=== PATIENT | male | born 1980 | race African-American/Black ===

== ENCOUNTER 2023-11-20 12:17 | Inpatient (IN) ==
[2023-11-20 12:51] LABS: ABS Eosinophils 0.1 10^3/uL (0.0-0.5); ABS Monocytes 0.5 10^3/uL (0.0-1.1); ABS Neutrophils 6.8 10^3/uL (1.5-7.6); ABS Nucleated RBC 0.01 10^3/ul; Eosinophil % 0.6 %; Hematocrit 42.1 % (38-53); Hemoglobin 14.5 g/dL (13.2-16.3); Mean Corpuscular Hemoglobin 31.4 pg (27-33); Mean Corpuscular Hgb Conc 34.3 g/dL (31-36); Mean Corpuscular Volume 91.5 fL (80-97); Mean Platelet Volume 7.5 fL (7.5-11.2); Nucleated Red Blood Cells % 0.1 %/100WBC (0.0-0.8); Platelet Count 198 10^3/uL (150-450); Red Blood Count 4.61 10^6/uL (4.06-5.63); Red Cell Distribution Width 12.8 % (12-17); White Blood Count 8.5 10^3/uL (3.6-10.2)
[2023-11-20] MEDS: Heparin - STEMI 5,000 UNITS/ML 1 ml VIAL IV ONE (12:54)
[2023-11-20] MEDS ORDERED: fentaNYL 100 mcg/2 ml 50 MCG/ML VIAL ONE (13:01)
[2023-11-20] MEDS ORDERED: Midazolam 5 mg/5 ml VIAL 1 mg/ml 5 ml VIAL (5 mg) ONE (13:01)
[2023-11-20] MEDS ORDERED: nitroGLYCERIN DRIP 0 MCG/0 ML BTL ONE (13:02)
[2023-11-20] MEDS ORDERED: Iohexol 350 (CONTRAST) 200 ML MDV IV ONE ×2 (13:02→14:34)
[2023-11-20] MEDS ORDERED: VERAPAMIL 2.5 MG/ML 2 ML VIAL ** 5 mg/2 ml ONE (13:02)
[2023-11-20] MEDS ORDERED: Heparin 1,000 UNIT/ML 10 ml (10,000 UNITS) CATHLAB/DIALYSIS ONE (13:02)
[2023-11-20] MEDS ORDERED: Heparin 2 UNITS/ML 1000 mls 3,000 ML IV ONE (13:02)
[2023-11-20] MEDS ORDERED: Lidocaine 1% MPF 5 ML VIAL ONE (13:03)
[2023-11-20] MEDS ORDERED: nitroGLYCERIN DRIP 25,000 MCG/250 ML BTL ONE (13:03)
[2023-11-20 13:07] LABS: INR 1.15 (0.83-1.13)
[2023-11-20] MEDS ORDERED: Bivalirudin 250 MG VIAL ONE ×2 (13:30→14:14)
[2023-11-20 13:49] LABS: Albumin 4.3 g/dL (3.2-5.2); Albumin/Globulin Ratio 1.4 (1-3); Calcium 9.5 mg/dL (8.6-10.3); Creatinine, Serum 1.11 mg/dL (0.67-1.17); Globulin 3.1 g/dL (2-4); Potassium 4.4 mmol/L (3.5-5.0); Total Bilirubin 0.6 mg/dL (0.2-1.0); Total Protein 7.4 g/dL (6.4-8.9)
[2023-11-20 13:52] LABS: Magnesium 1.6 mg/dL (1.9-2.7)
[2023-11-20] MEDS ORDERED: Eptifibatide IV (Load dose) 2 MG/ML 10 ml VIAL ONE (13:54)
[2023-11-20] MEDS ORDERED: Norepinephrine 4 MG/250mL D5W 4,000 MCG/250 ML BAG IV ONE (14:00)
[2023-11-20] MEDS ORDERED: Phenylephrine 40 mcg/mL 10mL (400mcg) SYRINGE ONE (14:01)
[2023-11-20] MEDS ORDERED: Ondansetron 4 mg VIAL 2 MG/ML 2 ml VIAL ONE (14:10)
[2023-11-20] MEDS ORDERED: Atropine 0.1 MG/ML 10 ml SYR (1 mg) ONE (14:13)
[2023-11-20] MEDS ORDERED: Magnesium Sulfate 2 gm BAG 2 GM/50 ML BAG ONE (14:23)
[2023-11-20] MEDS ORDERED: Furosemide 40 mg/4 ml IV VIAL ONE (15:17)
[2023-11-20] MEDS ORDERED: Heparin 5000 UNITS/ML 1 mL VIAL IV SCH (16:00)
[2023-11-20 16:52] LABS: ABS Basophils 0.1 10^3/uL (0.0-0.1); ABS Monocytes 0.8 10^3/uL (0.0-1.1); ABS Neutrophils 11.9 10^3/uL (1.5-7.6); ABS Nucleated RBC 0.01 10^3/ul; Eosinophil % 0.1 %; Hematocrit 41.9 % (38-53); Hemoglobin 14.2 g/dL (13.2-16.3); Lymphocyte % 7.4 %; Mean Corpuscular Hemoglobin 31.1 pg (27-33); Mean Corpuscular Hgb Conc 33.8 g/dL (31-36); Mean Corpuscular Volume 91.9 fL (80-97); Mean Platelet Volume 8.4 fL (7.5-11.2); Platelet Count 233 10^3/uL (150-450); Red Blood Count 4.57 10^6/uL (4.06-5.63); White Blood Count 13.8 10^3/uL (3.6-10.2)
[2023-11-20] MEDS: NS 0.9% 1000 ml BAG 1,000 ML IV SCH (17:14)
[2023-11-20] MEDS: Norepinephrine 4 MG/250mL D5W 4,000 MCG/250 ML BAG IV SCH (17:15)
[2023-11-20 17:40] LABS: High Sensitivity Troponin 1 Hr > 24000 pg/mL (<20)
[2023-11-20 18:26] LABS: Blood Urea Nitrogen 8 mg/dL (6-24); Creatinine, Serum 1.15 mg/dL (0.67-1.17); eGFR CKD-EPI 80.5 (>60)
[2023-11-20] MEDS: Heparin DRIP 25,000 UNITS BAG 25,000 UNITS/250 ML BAG IV SCH (20:40)
[2023-11-21 05:05] LABS: ABS Eosinophils 0.1 10^3/uL (0.0-0.5); ABS Lymphocytes 1.6 10^3/uL (1.0-4.8); ABS Monocytes 1.1 10^3/uL (0.0-1.1); ABS Neutrophils 6.8 10^3/uL (1.5-7.6); Eosinophil % 0.9 %; Hematocrit 38.2 % (38-53); Hemoglobin 13.1 g/dL (13.2-16.3); Lymphocyte % 17.1 %; Mean Corpuscular Hemoglobin 31.2 pg (27-33); Mean Corpuscular Hgb Conc 34.3 g/dL (31-36); Mean Corpuscular Volume 91.1 fL (80-97); Mean Platelet Volume 8.2 fL (7.5-11.2); Platelet Count 175 10^3/uL (150-450); Red Blood Count 4.19 10^6/uL (4.06-5.63); Red Cell Distribution Width 12.8 % (12-17); White Blood Count 9.7 10^3/uL (3.6-10.2)
[2023-11-21 06:49] LABS: Albumin 3.5 g/dL (3.2-5.2); Albumin/Globulin Ratio 1.3 (1-3); Calcium 8.3 mg/dL (8.6-10.3); Creatinine, Serum 1.06 mg/dL (0.67-1.17); Globulin 2.8 g/dL (2-4); HDL Cholesterol 34.9 mg/dL; Potassium 3.8 mmol/L (3.5-5.0); Total Bilirubin 0.7 mg/dL (0.2-1.0); Total Protein 6.3 g/dL (6.4-8.9); eGFR CKD-EPI 88.8 (>60)
[2023-11-21] MEDS ORDERED: Sulfur Hexaflouride MICROSPHR 25 MG VIAL ONE (09:29)
[2023-11-22 05:37] LABS: ABS Basophils 0.1 10^3/uL (0.0-0.1); ABS Eosinophils 0.2 10^3/uL (0.0-0.5); ABS Lymphocytes 1.6 10^3/uL (1.0-4.8); ABS Monocytes 0.9 10^3/uL (0.0-1.1); ABS Neutrophils 4.6 10^3/uL (1.5-7.6); ABS Nucleated RBC 0.02 10^3/ul; Eosinophil % 3.1 %; Hematocrit 39.8 % (38-53); Hemoglobin 13.7 g/dL (13.2-16.3); Lymphocyte % 21.8 %; Mean Corpuscular Hemoglobin 31.5 pg (27-33); Mean Corpuscular Hgb Conc 34.5 g/dL (31-36); Mean Corpuscular Volume 91.5 fL (80-97); Mean Platelet Volume 8.4 fL (7.5-11.2); Nucleated Red Blood Cells % 0.2 %/100WBC (0.0-0.8); Platelet Count 178 10^3/uL (150-450); Red Blood Count 4.34 10^6/uL (4.06-5.63); Red Cell Distribution Width 13.3 % (12-17); White Blood Count 7.4 10^3/uL (3.6-10.2)
[2023-11-22 06:05] LABS: Calcium 9.1 mg/dL (8.6-10.3); Creatinine, Serum 1.11 mg/dL (0.67-1.17); Magnesium 1.7 mg/dL (1.9-2.7)
[2023-11-22] MEDS: Enoxaparin 40 MG/0.4 ML SYR SUBCUT SCH (15:28)
[2023-11-23 05:25] LABS: ABS Eosinophils 0.2 10^3/uL (0.0-0.5); ABS Lymphocytes 1.6 10^3/uL (1.0-4.8); ABS Monocytes 0.7 10^3/uL (0.0-1.1); ABS Neutrophils 3.5 10^3/uL (1.5-7.6); ABS Nucleated RBC 0.01 10^3/ul; Eosinophil % 3.1 %; Hematocrit 41.2 % (38-53); Hemoglobin 14.2 g/dL (13.2-16.3); Lymphocyte % 26.5 %; Mean Corpuscular Hemoglobin 31.2 pg (27-33); Mean Corpuscular Hgb Conc 34.5 g/dL (31-36); Mean Corpuscular Volume 90.6 fL (80-97); Mean Platelet Volume 8.2 fL (7.5-11.2); Nucleated Red Blood Cells % 0.1 %/100WBC (0.0-0.8); Platelet Count 196 10^3/uL (150-450); Red Blood Count 4.55 10^6/uL (4.06-5.63); White Blood Count 5.9 10^3/uL (3.6-10.2)
[2023-11-23 06:12] LABS: Creatinine, Serum 1.29 mg/dL (0.67-1.17); Magnesium 1.9 mg/dL (1.9-2.7); Potassium 4.1 mmol/L (3.5-5.0); eGFR CKD-EPI 70.1 (>60)
[2023-11-23] MEDS: Magnesium Sulfate 2 gm BAG 2 GM/50 ML BAG IVPB ONE (09:07)
[2023-11-24 05:04] LABS: Hematocrit 41.5 % (38-53); Hemoglobin 14.4 g/dL (13.2-16.3); Mean Corpuscular Hemoglobin 31.4 pg (27-33); Mean Corpuscular Hgb Conc 34.6 g/dL (31-36); Mean Corpuscular Volume 90.5 fL (80-97); Platelet Count 217 10^3/uL (150-450); Red Blood Count 4.58 10^6/uL (4.06-5.63); Red Cell Distribution Width 12.9 % (12-17); White Blood Count 6.6 10^3/uL (3.6-10.2)
[2023-11-24 05:56] LABS: Calcium 9.2 mg/dL (8.6-10.3); Creatinine, Serum 1.35 mg/dL (0.67-1.17); Potassium 4.5 mmol/L (3.5-5.0); eGFR CKD-EPI 66.4 (>60)
[2023-11-24] MEDS ORDERED: Sulfur Hexaflouride MICROSPHR 25 MG VIAL ONE (10:21)
[2023-11-24] MEDS ORDERED: Heparin DRIP 25,000 UNITS BAG 25,000 UNITS/250 ML BAG IV SCH (10:45)
[2023-11-24] MEDS ORDERED: Heparin 5000 UNITS/ML 1 mL VIAL IV SCH (11:00)
[2023-11-24] MEDS ORDERED: Warfarin per PHARMACY **NOTE FOLLOW UP SCH (11:00)
[2023-11-24] MEDS: Enoxaparin 80 MG/0.8 ML SYR SUBCUT SCH (11:50)
[2023-11-24 14:00] LABS: INR 1.2 (0.83-1.13)
[2023-11-24 23:36] LABS: INR 1.27 (0.83-1.13)
[2023-11-25 06:33] LABS: Hematocrit 42.8 % (38-53); Hemoglobin 14.9 g/dL (13.2-16.3); Mean Corpuscular Hemoglobin 31.5 pg (27-33); Mean Corpuscular Hgb Conc 34.8 g/dL (31-36); Mean Corpuscular Volume 90.5 fL (80-97); Mean Platelet Volume 8.1 fL (7.5-11.2); Platelet Count 236 10^3/uL (150-450); Red Blood Count 4.73 10^6/uL (4.06-5.63); White Blood Count 6.3 10^3/uL (3.6-10.2)
[2023-11-25 06:44] LABS: INR 1.21 (0.83-1.13)
[2023-11-25 06:52] LABS: Calcium 9.4 mg/dL (8.6-10.3); Creatinine, Serum 1.44 mg/dL (0.67-1.17); Magnesium 2.1 mg/dL (1.9-2.7); Potassium 4.4 mmol/L (3.5-5.0); eGFR CKD-EPI 61.4 (>60)
[2023-11-25 13:48] LABS: Urine Appearance Clear; Urine Bilirubin Negative (Negative); Urine Blood Negative (Negative); Urine Color Light-Yellow; Urine Glucose 4+ (>=1000 mg/dL) (Negative); Urine Ketones Negative (Negative); Urine Nitrite Negative (Negative); Urine Protein Negative (Negative); Urine Urobilinogen Negative (Negative); Urine pH 5.5 (5.0-8.0)
[2023-11-25] MEDS ORDERED: Nicotine Lozenge mini 2 MG LOZNG.MINI MT PRN (15:33)
[2023-11-26 06:11] LABS: ABS Eosinophils 0.3 10^3/uL (0.0-0.5); ABS Lymphocytes 1.5 10^3/uL (1.0-4.8); ABS Monocytes 0.6 10^3/uL (0.0-1.1); ABS Neutrophils 2.7 10^3/uL (1.5-7.6); ABS Nucleated RBC 0.01 10^3/ul; Eosinophil % 5.8 %; Hematocrit 43.2 % (38-53); Hemoglobin 14.6 g/dL (13.2-16.3); Lymphocyte % 29.7 %; Mean Corpuscular Hgb Conc 33.8 g/dL (31-36); Mean Corpuscular Volume 91.7 fL (80-97); Nucleated Red Blood Cells % 0.1 %/100WBC (0.0-0.8); Platelet Count 224 10^3/uL (150-450); Red Cell Distribution Width 12.8 % (12-17); White Blood Count 5.1 10^3/uL (3.6-10.2)
[2023-11-26 06:20] LABS: INR 1.33 (0.83-1.13)
[2023-11-26 07:20] LABS: Albumin/Globulin Ratio 1.2 (1-3); Calcium 9.4 mg/dL (8.6-10.3); Creatinine, Serum 1.33 mg/dL (0.67-1.17); Globulin 3.3 g/dL (2-4); Potassium 4.4 mmol/L (3.5-5.0); Total Bilirubin 0.4 mg/dL (0.2-1.0); Total Protein 7.3 g/dL (6.4-8.9); eGFR CKD-EPI 67.6 (>60)
[2023-11-26] MEDS: Warfarin DAILY REMINDER **NOTE FOLLOW UP SCH (09:30)
[2023-11-27 06:46] LABS: INR 2.01 (0.83-1.13)
[2023-11-27 07:14] LABS: Albumin/Globulin Ratio 1.3 (1-3); Creatinine, Serum 1.27 mg/dL (0.67-1.17); Globulin 3.2 g/dL (2-4); Potassium 4.4 mmol/L (3.5-5.0); Total Bilirubin 0.3 mg/dL (0.2-1.0); Total Protein 7.2 g/dL (6.4-8.9); eGFR CKD-EPI 71.4 (>60)
[2023-11-27 14:00] VITALS: BP 106/67
== END 2023-11-27 16:35 | DRG 174 ==
LOC: ED 12:17 → ICU 13:05 → CHICATH 13:05 → SUATTDRO 15:29 → ICU 15:29 → MED 11-25 04:36
PROVIDERS: ATTEND Hospitalist